=== PATIENT | female | born 1940 | race Caucasian/White ===

== ENCOUNTER 2019-06-17 12:13 | Outpatient (CLI) | payer MEDICARE, BC ==
[2019-06-17 13:00] LABS: ALBUMIN 2.9 G/DL (3.4-5.0); ANION GAP 8 (8-16); BLOOD UREA NITROGEN 33 MG/DL (7-18); CALCIUM 9.4 MG/DL (8.5-10.1); CHLORIDE 105 MMOL/L (99-107); CREATININE 1.65 MG/DL (0.40-0.90); GLUCOSE 90 MG/DL (70-104); POTASSIUM 5.4 MMOL/L (3.5-5.1); SODIUM 137 MMOL/L (135-145); TOTAL CARBON DIOXIDE 23.8 MMOL/L (24-32); eGFR 30 ML/MIN
== END 2019-06-17 23:59 | disposition home or self-care (01) ==
LOC: LAB 12:13
PROVIDERS: ATTEND Internal Medicine
DX: Z01.818 Encounter for other preprocedural examination (principal); R07.89 Other chest pain; R94.39 Abnormal result of other cardiovascular function study; R00.2 Palpitations; Z87.891 Personal history of nicotine dependence
CPT/HCPCS: 36415; 80048

== ENCOUNTER 2019-06-20 11:51 | Emergency (ER) | payer MEDICARE, BC ==
[~2019-06-20] VITALS: Ht 162.6 cm; Wt 48.0 kg
[2019-06-20] MEDS ORDERED: normal saline 1000ML IV soln IVB ONE (12:15)
[2019-06-20 14:15] VITALS: BP 166/48
== END 2019-06-20 14:16 | disposition home or self-care (01) ==
LOC: ER 11:51
DX: E86.0 Dehydration (principal); R94.4 Abnormal results of kidney function studies; Z88.0 Allergy status to penicillin; Z88.2 Allergy status to sulfonamides; Z87.19 Personal history of other diseases of the digestive system; Z90.49 Acquired absence of other specified parts of digestive tract
CPT/HCPCS: 96360; 96361; 99283; J7030

== ENCOUNTER 2019-06-22 12:02 | Outpatient (CLI) | payer MEDICARE, BC ==
[2019-06-22 12:45] LABS: ALANINE AMINOTRANSFERASE 20 U/L (12-78); ALBUMIN 2.4 G/DL (3.4-5.0); ALBUMIN/GLOBULIN RATIO 0.6 (1.1-1.5); ALKALINE PHOSPHATASE 113 IU/L (46-116); ANION GAP 11 (8-16); ASPARTATE AMINO TRANSFERASE 10 U/L (10-37); BILIRUBIN,TOTAL 0.1 MG/DL (0.1-1.0); BLOOD UREA NITROGEN 10 MG/DL (7-18); BUN/CREATININE RATIO 10.2 (6.6-38.0); CALCIUM 8.6 MG/DL (8.5-10.1); CHLORIDE 109 MMOL/L (99-107); CREATININE 0.98 MG/DL (0.40-0.90); GLUCOSE 89 MG/DL (70-104); POTASSIUM 4.7 MMOL/L (3.5-5.1); SODIUM 141 MMOL/L (135-145); TOTAL CARBON DIOXIDE 21.3 MMOL/L (24-32); TOTAL PROTEIN 6.4 G/DL (6.4-8.2); eGFR 55 ML/MIN
== END 2019-06-22 23:59 | disposition home or self-care (01) ==
LOC: LAB 12:02
DX: N18.3 Chronic kidney disease, stage 3 (moderate) (principal); Z88.0 Allergy status to penicillin; Z88.2 Allergy status to sulfonamides
CPT/HCPCS: 36415; 80053

== ENCOUNTER 2019-07-08 09:08 | Outpatient (CLI) | payer MEDICARE, BC ==
[2019-07-08 10:25] LABS: ANION GAP 8 (8-16); BLOOD UREA NITROGEN 6 MG/DL (7-18); BUN/CREATININE RATIO 7.6 (6.6-38.0); CHLORIDE 103 MMOL/L (99-107); CREATININE 0.79 MG/DL (0.40-0.90); GLUCOSE 94 MG/DL (70-104); POTASSIUM 4.4 MMOL/L (3.5-5.1); SODIUM 135 MMOL/L (135-145); eGFR 71 ML/MIN
== END 2019-07-08 23:59 | disposition home or self-care (01) ==
LOC: LAB 09:08
DX: N18.3 Chronic kidney disease, stage 3 (moderate) (principal); Z00.00 Encounter for general adult medical examination without abnormal findings; Z87.891 Personal history of nicotine dependence
CPT/HCPCS: 36415; 80048

== ENCOUNTER 2019-07-27 09:46 | Outpatient (CLI) | payer MEDICARE, BC ==
[2019-07-27 10:36] LABS: ALBUMIN 3.4 G/DL (3.4-5.0); ANION GAP 10 (8-16); BLOOD UREA NITROGEN 6 MG/DL (7-18); BUN/CREATININE RATIO 6.5 (6.6-38.0); CALCIUM 8.9 MG/DL (8.5-10.1); CHLORIDE 99 MMOL/L (99-107); CREATININE 0.93 MG/DL (0.40-0.90); GLUCOSE 89 MG/DL (70-104); POTASSIUM 4.3 MMOL/L (3.5-5.1); SODIUM 136 MMOL/L (135-145); TOTAL CARBON DIOXIDE 27.2 MMOL/L (24-32); eGFR 58 ML/MIN
== END 2019-07-27 23:59 | disposition home or self-care (01) ==
LOC: LAB 09:46
DX: N18.3 Chronic kidney disease, stage 3 (moderate) (principal); Z87.891 Personal history of nicotine dependence
CPT/HCPCS: 36415; 80048

== ENCOUNTER 2020-03-17 13:23 | Emergency (ER) | payer MEDICARE, BC ==
[~2020-03-17] VITALS: Ht 165.1 cm; Wt 51.3 kg
[2020-03-17 14:09] LABS: BASOPHILS % (AUTO) 0.2 % (0-1); EOSINOPHILS % (AUTO) 0.1 % (0-6); HEMATOCRIT 35.7 % (35.0-45.0); HEMOGLOBIN 12.3 g/dl (12.0-16.0); LYMPHOCYTES # (AUTO) 0.7 X10'3 (1.1-4.8); LYMPHOCYTES % (AUTO) 9.7 % (21-51); MEAN CORPUSCULAR HEMOGLOBIN 36.4 PG (27.0-31.0); MEAN CORPUSCULAR HGB CONC 34.6 g/dL (33.0-36.5); MEAN CORPUSCULAR VOLUME 105.4 FL (78-98); MEAN PLATELET VOLUME 9.4 FL (7.4-10.4); MONOCYTES # (AUTO) 0.4 X10'3 (0-0.9); MONOCYTES % (AUTO) 6.1 % (2-12); NEUTROPHILS % (AUTO) 83.9 % (42-75); PLATELET COUNT 170 X10'3 (140-440); RED BLOOD COUNT 3.39 X10'6 (4.20-5.60); RED CELL DISTRIBUTION WIDTH 12.7 % (11.5-14.5); WHITE BLOOD COUNT 7.1 X10'3 (4.5-11.0)
[2020-03-17 14:19] LABS: ALANINE AMINOTRANSFERASE 31 U/L (12-78); ALBUMIN 3.8 G/DL (3.4-5.0); ALBUMIN/GLOBULIN RATIO 1.2 (1.1-1.5); ALKALINE PHOSPHATASE 89 IU/L (46-116); ANION GAP 11 (8-16); ASPARTATE AMINO TRANSFERASE 23 U/L (10-37); BILIRUBIN,TOTAL 0.6 MG/DL (0.1-1.0); BLOOD UREA NITROGEN 14 MG/DL (7-18); BUN/CREATININE RATIO 15.6 (6.6-38.0); CALCIUM 9.2 MG/DL (8.5-10.1); CHLORIDE 102 MMOL/L (99-107); GLUCOSE 109 MG/DL (70-104); LIPASE 88 U/L (73-393); POTASSIUM 3.3 MMOL/L (3.5-5.1); SODIUM 138 MMOL/L (135-145); TOTAL CARBON DIOXIDE 24.8 MMOL/L (24-32); eGFR 61 ML/MIN
[2020-03-17] MEDS ORDERED: ondansetron/PF 4mg/2ml inj IV ONE (14:30)
[2020-03-17] MEDS ORDERED: morphine 4 MG/ML inj SYRINge IV ONE (14:30)
[2020-03-17 14:49] LABS: CLARITY,URINE CLOUDY (Clear); COLOR,URINE YELLOW (Yellow); GLUCOSE, URINE NEGATIVE (Neg); KETONES,URINE NEGATIVE (Neg); LEUKOCYTE ESTERASE ,URINE LARGE (Neg); NITRITES, URINE POSITIVE (Neg); OCCULT BLOOD,URINE MODERATE (Neg); PROTEIN,URINE NEGATIVE (Neg); UROBILINOGEN,URINE 0.2 E.U/dL (0.2-1.0)
[2020-03-17 14:54] LABS: UA COLLECTION TYPE CLN CATCH MIDSTREAM
[2020-03-17 14:55] LABS: BACTERIA,URINE 4+ /HPF (Neg); MUCUS STRANDS NONE SEEN /LPF (Neg); RBC,URINE 0-2 /HPF (0-2); SQUAMOUS EPITHELIAL CELL,UR FEW /LPF (FEW); WBC,URINE TNTC /HPF (0-4)
[2020-03-17] MEDS ORDERED: CEPH250T PO (15:28)
[2020-03-17 16:01] VITALS: BP 158/73
== END 2020-03-17 15:55 | disposition home or self-care (01) ==
LOC: ER 13:23
DX: N39.0 Urinary tract infection, site not specified (principal); K43.9 Ventral hernia without obstruction or gangrene; R10.31 Right lower quadrant pain; R10.32 Left lower quadrant pain; R11.2 Nausea with vomiting, unspecified; Z90.49 Acquired absence of other specified parts of digestive tract; Z88.0 Allergy status to penicillin; Z88.2 Allergy status to sulfonamides
CPT/HCPCS: 36415; 74176; 80053; 81001; 83690; 85025; 87077; 87088; 96374; 96375; 99284; J2270; J2405; 87186

== ENCOUNTER 2020-04-17 05:33 | Day surgery (SDC) | payer MEDICARE, BC ==
[2020-04-10 16:26] LABS: EOSINOPHILS # (AUTO) 0.1 X10'3 (0-0.9); EOSINOPHILS % (AUTO) 2.1 % (0-6); LYMPHOCYTES # (AUTO) 1.1 X10'3 (1.1-4.8); LYMPHOCYTES % (AUTO) 26.9 % (21-51); MEAN CORPUSCULAR HEMOGLOBIN 35.9 PG (27.0-31.0); MEAN CORPUSCULAR HGB CONC 33.8 g/dL (33.0-36.5); MEAN CORPUSCULAR VOLUME 106.2 FL (78-98); MEAN PLATELET VOLUME 9.4 FL (7.4-10.4); MONOCYTES # (AUTO) 0.4 X10'3 (0-0.9); MONOCYTES % (AUTO) 8.9 % (2-12); NEUTROPHILS # (AUTO) 2.5 X10'3 (1.8-7.7); NEUTROPHILS % (AUTO) 61.1 % (42-75); PRE OP HEMOGLOBIN 11.8 g/dL (12.0-16.0); PRE OP PLATELET COUNT 162 X10'3 (140-440); RED CELL DISTRIBUTION WIDTH 12.5 % (11.5-14.5)
[2020-04-10 16:34] LABS: PRE OP PROTIME 10.6 SECONDS (9.0-12.0)
[2020-04-10 16:36] LABS: ALBUMIN 3.8 G/DL (3.4-5.0); ALBUMIN/GLOBULIN RATIO 1.3 (1.1-1.5); ALKALINE PHOSPHATASE 76 IU/L (46-116); BLOOD UREA NITROGEN 14 MG/DL (7-18); BUN/CREATININE RATIO 12.5 (6.6-38.0); CHLORIDE 107 MMOL/L (99-107); CREATININE 1.12 MG/DL (0.40-0.90); PRE OP ALT 41 U/L (30-65); PRE OP ANION GAP 7 (8-16); PRE OP AST 28 U/L (10-37); PRE OP BILIRUB, TOTAL 0.3 MG/DL (0.0-1.0); PRE OP GLUCOSE 94 MG/DL (70-104); PRE OP POTASSIUM 4.5 MMOL/L (3.4-5.1); PRE OP SODIUM 142 MMOL/L (135-145); TOTAL CARBON DIOXIDE 27.7 MMOL/L (24-32); TOTAL PROTEIN 6.8 G/DL (6.4-8.2); eGFR 47 ML/MIN
[2020-04-17] VITALS (15 sets, daily range): BP systolic 103–155; BP diastolic 49–70
[~2020-04-17] VITALS: Ht 162.6 cm; Wt 52.2 kg
[~2020-04-17 05:33] MED LIST: ACET-1025 PO; AMLO2.5T2 PO; ASPI-1265 PO; ATOR40TA PO; B2/V1TAB PO; DEXL60CA3 PO; GABA300C PO; GUAIFENESIN PO; TICA90TA PO; VALA100031 PO; VITAMIN D3 PO; clindamycin-Cleocin 900mg/D5W 50 ML IV ONE; famotidine 20mg tablet PO ONE; ringers solution, lacted 1,000 ML IV SCH
[2020-04-17] MEDS ORDERED: LIDOcaine 1% (10mg/ml) 2ml vial ONE (06:03)
[2020-04-17] MEDS ORDERED: LIDOcaine 1% 30ml preserv. free vial ONE (06:37)
[2020-04-17] MEDS ORDERED: BUPIVAcaine/PF 2.5mg/ml (0.25%) 10ml vial ONE (06:37)
[2020-04-17] MEDS ORDERED: BUPIVACAINE liposomal/PF 13.3 MG/ML vial IM ONE (06:37)
[2020-04-17] MEDS ORDERED: BUPIVAcaine/PF 2.5 mg/ml (0.25%) 30ml vial ONE (06:37)
[2020-04-17] MEDS ORDERED: neostigmine methylsulfate 1 MG/ML 10ml vial ONE (07:27)
[2020-04-17] MEDS ORDERED: acetaminophen 1000 MG/100ml vial IV ONE (07:27)
[2020-04-17] MEDS ORDERED: dexamethasone sod phosphate 10mg/ml inj ONE (07:27)
[2020-04-17] MEDS ORDERED: sevoflurane 250ml liquid IH ONE (07:27)
[2020-04-17] MEDS ORDERED: morphine 4 MG/ML inj SYRINge IV PRN (07:30)
[2020-04-17] MEDS ORDERED: ringers solution, lacted 1,000 ML IV SCH (07:30)
[2020-04-17] MEDS ORDERED: meperidine/PF 25mg/ml syringe IV PRN ×3 (07:30)
[2020-04-17] MEDS ORDERED: ondansetron/PF 4mg/2ml inj IV PRN (07:30)
[2020-04-17] MEDS ORDERED: morphine 2 MG/ML inj. syringe IV PRN (07:30)
[2020-04-17] MEDS ORDERED: proCHLORperazine 10 MG/2 ml inj IV PRN (07:30)
[2020-04-17] MEDS ORDERED: fentaNYL/PF 50MCG/1 ML 2ML syringe ONE (07:36)
[2020-04-17] MEDS ORDERED: midazolam 2 mg/2 ml injection ONE (07:36)
[2020-04-17] MEDS ORDERED: propofol inj 20 ML IV ONE (07:37)
[2020-04-17] MEDS ORDERED: LIDOcaine 2% (20mg/ml) 5ml vial ONE (07:37)
[2020-04-17] MEDS ORDERED: rocuronium 10mg/ml inj IV ONE (07:48)
[2020-04-17] MEDS ORDERED: ondansetron/PF 4mg/2ml inj ONE (07:51)
[2020-04-17] MEDS ORDERED: glycopyrrolate 0.2mg/ml inj ONE (08:06)
--- NOTE | 2020-04-17 08:40 | NUR ---
Received from OR via [facility], accompanied by Anesthesiologist DR ACOSTA and report given by Anesthesiologist. PT VERY DROWSY, NO S/S OF DISTRESS/DISCOMFORT, VSS, ABDOMEN W/SMALL MIDLINE INCISION W/DERMABOND CDI, ILEOSTOMY REMAINS INTACT. Addendum: 04/17/20 at 0857 by Estelita Ramos RN Amended: Links added.
[2020-04-17] MEDS ORDERED: HYDROcodone/acetaminophen 5mg/325mg tablet PO PRN (08:50)
--- NOTE | 2020-04-17 12:00 | NUR ---
PT UP AD DOC, AMBULATES WELL, HAS VOIDED SEVERAL TIMES, HAS NO PAIN, D/C INSTRUCTIONS GIVEN AND GONE OVER W/PT WHO VERBALIZED UNDERSTANDING, PT D/CD TO HOME VIA W/C TO PRIVATE VEHICLE W/O INCIDENT. Addendum: 04/17/20 at 1315 by Estelita Ramos RN Amended: Links added.
== END 2020-04-17 12:00 | disposition home or self-care (01) ==
LOC: PAS 05:33
PROVIDERS: ATTEND Surgery
DX: K43.2 Incisional hernia without obstruction or gangrene (principal); I12.9 Hypertensive chronic kidney disease with stage 1 through stage 4 chronic kidney disease, or unspecified chronic kidney disease; N18.3 Chronic kidney disease, stage 3 (moderate); E78.5 Hyperlipidemia, unspecified; K21.9 Gastro-esophageal reflux disease without esophagitis; I25.10 Atherosclerotic heart disease of native coronary artery without angina pectoris; Z11.59 Encounter for screening for other viral diseases; Z79.899 Other long term (current) drug therapy; Z79.01 Long term (current) use of anticoagulants; Z87.19 Personal history of other diseases of the digestive system; Z93.2 Ileostomy status; Z88.0 Allergy status to penicillin; Z88.2 Allergy status to sulfonamides; Z88.8 Allergy status to other drugs, medicaments and biological substances; Z95.5 Presence of coronary angioplasty implant and graft; Z82.61 Family history of arthritis; Z82.3 Family history of stroke; Z83.3 Family history of diabetes mellitus; Z80.0 Family history of malignant neoplasm of digestive organs; Z82.49 Family history of ischemic heart disease and other diseases of the circulatory system; Z87.891 Personal history of nicotine dependence
CPT/HCPCS: 36415; 49565; 80053; 82948; 85025; 85610; 85730; 93005; C1758; C9290; J0131; J1100; J2001; J2250; J2405; J2704; J2710; J3010; J3490; J7120; U0003; A4215; A4618; A7000